=== PATIENT | female | born 1990 | race Caucasian/White ===

== ENCOUNTER 2019-04-17 10:07 | Outpatient (CLI) | payer OTHER ==
[2019-04-17 13:04] LABS: BASOPHILS % (AUTO) 0.6 %; EOSINOPHILS % (AUTO) 0.7 %; HGB - HEMOGLOBIN 11.9 g/dL (12.0-16.0); LYMPHOCYTES # (AUTO) 1.7 10^3/uL (1.5-3.5); LYMPHOCYTES % (AUTO) 30.8 %; MEAN CORPUSCULAR HEMOGLOBIN 29.2 pg (27.0-31.0); MEAN CORPUSCULAR HGB CONC 31.9 g/dL (32.0-36.0); MEAN CORPUSCULAR VOLUME 91.6 fL (81.0-99.0); MEAN PLATELET VOLUME 9.8 fL (7.9-10.8); MONOCYTES # (AUTO) 0.4 10^3/uL (0.0-1.0); MONOCYTES % (AUTO) 7.4 %; NEUTROPHILS # (AUTO) 3.2 10^3/uL (1.5-6.6); NEUTROPHILS % (AUTO) 60.1 %; PLT - PLATELET COUNT 213 10^3/uL (130-450); RED BLOOD COUNT 4.07 10^6/uL (4.20-5.40); RED CELL DISTRIBUTION WIDTH 13.2 % (12.0-15.0); WHITE BLOOD COUNT 5.4 x10^3/uL (4.8-10.8)
[2019-04-17 16:02] LABS: ALBUMIN 4.2 g/dL (3.2-5.5); ALBUMIN/GLOBULIN RATIO 1.5 (1.0-2.2); ALKALINE PHOSPHATASE 38 IU/L (42-121); ALT ALANINE AMINOTRANSFERASE 15 IU/L (10-60); AST ASPARTATE AMINOTRANSFERASE 18 IU/L (10-42); BUN - BLOOD UREA NITROGEN 12 mg/dL (6-20); CARBON DIOXIDE - CO2 26 mmol/L (21-32); CHLORIDE 102 mmol/L (101-111); CHOL/HDL RATIO 3.2 (<4.4); CHOLESTEROL 159 mg/dL; CREATININE 0.7 mg/dL (0.4-1.0); GFR - MDRD 100 (>89); GLUCOSE 87 mg/dL (70-100); HDL CHOLESTEROL 49 mg/dL; LDL CHOLESTEROL,CALCULATED 97 mg/dL; SODIUM 134 mmol/L (135-145); VLDL CHOLESTEROL 13 mg/dL
[2019-04-17 17:47] LABS: HB2 TOTAL 12.3 g/dL; HEMOGLOBIN A1C 0.43 g/dL; HEMOGLOBIN A1C % 5.4 % (4.6-6.2)
== END 2019-04-17 23:59 | disposition home or self-care (01) ==
LOC: LAB.N 10:07
PROVIDERS: ATTEND Family Medicine
DX: Z00.00 Encounter for general adult medical examination without abnormal findings (principal)
CPT/HCPCS: 36415; 80053; 80061; 83036; 83721; 84443; 85025

== ENCOUNTER 2020-09-16 08:00 | Outpatient (CLI) | payer OTHER ==
[2020-09-16 16:14] LABS: MUDS CUTOFF CONCENTRATIONS CUTOFF CONC BELOW:
[2020-09-16 16:33] LABS: BILIRUBIN,URINE NEGATIVE (NEGATIVE); GLUCOSE, URINE (UA) NEGATIVE (NEGATIVE); KETONES,URINE (UA) NEGATIVE (NEGATIVE); LEUKOCYTE ESTERASE, URINE NEGATIVE (NEGATIVE); NITRITE,URINE NEGATIVE (NEGATIVE); OCCULT BLOOD,URINE NEGATIVE (NEGATIVE); PH,URINE 6.5 PH (5.0-7.5); PROTEIN,URINE NEGATIVE (NEGATIVE); UROBILINOGEN,URINE 0.2 (NORMAL) E.U./dL (NORMAL)
[2020-09-16 16:36] LABS: CLARITY,URINE CLEAR (CLEAR)
[2020-09-16 16:47] LABS: BACTERIA,URINE Rare /HPF (None Seen); RBC,URINE None Seen /HPF (0-5); SQUAMOUS EPITHELIAL CELL,UR RARE Squamous (<= Few); WBC,URINE 0-3 /HPF (0-5)
[2020-09-16 16:48] LABS: AMPHETAMINE SCREEN,URINE NEGATIVE (NEGATIVE); BARBITURATE SCREEN,UR NEGATIVE (NEGATIVE); BENZODIAZEPINES SCREEN, URINE NEGATIVE (NEGATIVE); COCAINE SCREEN URINE NEGATIVE (NEGATIVE); METHADONE SCREEN, URINE NEGATIVE (NEGATIVE); METHAMPHETAMINES SCREEN, URINE NEGATIVE (NEGATIVE); OPIATE SCREEN, URINE NEGATIVE (NEGATIVE); OXYCODONE SCREEN, URINE NEGATIVE (NEGATIVE); PROPOXYPHENE SCREEN, URINE NEGATIVE (NEGATIVE); THC CANNABINOID SCREEN, URINE NEGATIVE (NEGATIVE); TRICYCLIC ANTIDEPRESSANT,URINE NEGATIVE (NEGATIVE)
== END 2020-09-16 23:59 | disposition home or self-care (01) ==
LOC: LAB.R 08:00
PROVIDERS: ATTEND Nurse Practitioner Obstetrics & Gynecology
DX: Z32.01 Encounter for pregnancy test, result positive (principal)
CPT/HCPCS: 80306; 81001; 87086

== ENCOUNTER 2020-09-18 18:36 | Outpatient (CLI) | payer OTHER ==
--- NOTE | 2020-09-18 20:17 | Ultrasound Report ---
PROCEDURE: OB First Trimester w/TV INDICATIONS: POSITIVE TEST OUTSIDE/PRIOR DATING DATA: Last menstrual period (LMP): 07/10/2020. LMP-based estimated date of delivery (KALE): 04/16/2021. First dating scan (date and location): 09/18/2020. Estimated date of delivery (KALE) from first dating scan: 05/13/2021. TECHNIQUE: Real-time scanning was performed of the fetus and maternal pelvic organs, with image documentation. Endovaginal scanning was also performed to better visualize the fetus and maternal ovaries. COMPARISON: None. FINDINGS: Embryo: Single living intrauterine fetus with a crown-rump length measuring 0.45 cm, 6 weeks 1 day. heart rate measured 114 bpm. Possible subchorionic hemorrhage measuring 0.6 x 0.2 x 0.6 cm, richardson hnically nonspecific and differential includes involuting additional gestational sac. Measurement variability in dating: +/- 4 weeks by LMP, +/- 7 days by mean sac diameter (use before 6 weeks gestation if crown-rump length not able to be measured), +/- 5 days by crown-rump length (6-12 weeks gestation). Maternal organs: Ovaries unremarkable except for a presumed right-sided corpus luteum measuring 2.5 cm. IMPRESSION: Single living intrauterine fetus with a gestational age measuring 6 weeks 1 day, ultrasound KALE of Possible subcentimeter perigestational hemorrhage Reviewed by: Mayo Guan MD on 09/18/2020 8:16 PM PDT Approved by: Mayo Guan MD on 09/18/2020 8:16 PM PDT Station ID: [id number]
== END 2020-09-18 18:37 | disposition home or self-care (01) ==
LOC: DI 18:36
PROVIDERS: ATTEND Nurse Practitioner Obstetrics & Gynecology
DX: Z32.01 Encounter for pregnancy test, result positive (principal)

== ENCOUNTER 2020-09-29 15:45 | Outpatient (CLI) | payer OTHER ==
[2020-09-29 16:04] LABS: BASOPHILS % (AUTO) 0.6 %; EOSINOPHILS # (AUTO) 0.1 10^3/uL (0.0-0.7); HCT - HEMATOCRIT 35.2 % (37.0-47.0); LYMPHOCYTES # (AUTO) 2.1 10^3/uL (1.5-3.5); LYMPHOCYTES % (AUTO) 31.1 %; MEAN CORPUSCULAR HEMOGLOBIN 30.5 pg (27.0-31.0); MEAN CORPUSCULAR HGB CONC 34.1 g/dL (32.0-36.0); MEAN CORPUSCULAR VOLUME 89.3 fL (81.0-99.0); MEAN PLATELET VOLUME 9.4 fL (7.9-10.8); MONOCYTES # (AUTO) 0.6 10^3/uL (0.0-1.0); MONOCYTES % (AUTO) 8.1 %; NEUTROPHILS # (AUTO) 4.1 10^3/uL (1.5-6.6); NEUTROPHILS % (AUTO) 59.1 %; PLT - PLATELET COUNT 256 10^3/uL (130-450); RED BLOOD COUNT 3.94 10^6/uL (4.20-5.40); RED CELL DISTRIBUTION WIDTH 12.4 % (12.0-15.0); WHITE BLOOD COUNT 6.9 x10^3/uL (4.8-10.8)
[2020-09-30 11:12] LABS: HEPATITIS B SURFACE ANTIGEN NON-REACTIVE (NON-REACTIVE)
[2020-09-30 11:27] LABS: HEPATITIS C ANTIBODY NON-REACTIVE (NON-REACTIVE)
[2020-09-30 15:21] LABS: HIV AG/AB 4TH GEN NON-REACTIVE (NON-REACTIVE)
== END 2020-09-29 15:46 | disposition home or self-care (01) ==
LOC: LAB 15:45
PROVIDERS: ATTEND Nurse Practitioner Obstetrics & Gynecology
DX: Z32.01 Encounter for pregnancy test, result positive (principal)
CPT/HCPCS: 36415; 85025; 86592; 86762; 86787; 86803; 86850; 86900; 86901; 87340; 87389

== ENCOUNTER 2020-10-23 11:25 | Outpatient (CLI) | payer OTHER | END 2020-10-23 11:26 | disposition home or self-care (01) | LOC: LAB 11:25 | PROVIDERS: ATTEND Radiology Diagnostic Radiology | DX: Z34.81 Encounter for supervision of other normal pregnancy, first trimester (principal); Z36.0 Encounter for antenatal screening for chromosomal anomalies | CPT/HCPCS: 86787 ==

== ENCOUNTER 2020-11-03 08:41 | Outpatient (CLI) | payer OTHER | END 2020-11-03 08:42 | disposition home or self-care (01) | LOC: LAB 08:41 | PROVIDERS: ATTEND Nurse Practitioner Obstetrics & Gynecology | DX: O20.0 Threatened abortion (principal) | CPT/HCPCS: 36415; 84702 ==

== ENCOUNTER 2020-11-03 19:40 | Outpatient (CLI) | payer OTHER ==
--- NOTE | 2020-11-03 20:58 | Ultrasound Report ---
PROCEDURE: OB First Trimester w/TV INDICATIONS: THREATENENED OUTSIDE/PRIOR DATING DATA: Last menstrual period (LMP): 07/10/2020. LMP-based estimated date of delivery (KALE): 04/16/2021. First dating scan (date and location): 09/18/2020. Estimated date of delivery (KALE) from first dating scan: 05/13/2021. The below data below was generated using the ultrasound KALE of 05/13/2021 TECHNIQUE: Real-time scanning was performed of the fetus and maternal pelvic organs, with image documentation. Endovaginal scanning was also performed to better visualize the fetus and maternal ovaries. COMPARISON: FINDINGS: There is a deformed gestational sac. There is a tiny possible crown-rump length without a heartbeat. Findings are consistent with a nonviable . Maternal organs: The right ovary contains a subcentimeter complex cyst. Right ovary measures 3.3 x 1. 7 x 2.7 cm. Left ovary measures 3.5 x 1.0 x 3.1 cm. IMPRESSION: Nonviable intrauterine . Reviewed by: Wale Valadez MD on 11/03/2020 8:56 PM PDT Approved by: Wale Valadez MD on 11/03/2020 8:56 PM PDT Station ID: [id number]
== END 2020-11-03 19:41 | disposition home or self-care (01) ==
LOC: DI 19:40
PROVIDERS: ATTEND Nurse Practitioner Obstetrics & Gynecology
DX: O36.8310 Maternal care for abnormalities of the fetal heart rate or rhythm, first trimester, not applicable or unspecified (principal); O20.0 Threatened abortion
CPT/HCPCS: 36415; 84702

== ENCOUNTER 2020-11-04 07:16 | Outpatient (CLI) | payer OTHER | END 2020-11-04 07:17 | disposition home or self-care (01) | LOC: LAB 07:16 | PROVIDERS: ATTEND Nurse Practitioner Obstetrics & Gynecology | DX: O20.0 Threatened abortion (principal) | CPT/HCPCS: 36415; 84702 ==

== ENCOUNTER 2020-11-17 07:38 | Outpatient (CLI) | payer OTHER | END 2020-11-17 07:39 | disposition home or self-care (01) | LOC: LAB 07:38 | PROVIDERS: ATTEND Nurse Practitioner Obstetrics & Gynecology | DX: O02.1 Missed abortion (principal) | CPT/HCPCS: 36415; 84702 ==

== ENCOUNTER 2020-11-27 09:48 | Outpatient (CLI) | payer OTHER | END 2020-11-27 23:59 | disposition home or self-care (01) | LOC: LAB.WCP 09:48 | PROVIDERS: ATTEND Nurse Practitioner Obstetrics & Gynecology | DX: O02.1 Missed abortion (principal) | CPT/HCPCS: 36415; 84702 ==

== ENCOUNTER 2020-12-18 08:00 | Outpatient (CLI) | payer OTHER | END 2020-12-18 23:59 | disposition home or self-care (01) | LOC: LAB.WCP 08:00 | PROVIDERS: ATTEND Advanced Practice Midwife | DX: O02.1 Missed abortion (principal) | CPT/HCPCS: 36415; 84702 ==

== ENCOUNTER 2020-12-29 08:00 | Outpatient (CLI) | payer OTHER | END 2020-12-29 23:59 | disposition home or self-care (01) | LOC: LAB.WCP 08:00 | PROVIDERS: ATTEND Nurse Practitioner Obstetrics & Gynecology | DX: O02.1 Missed abortion (principal) | CPT/HCPCS: 36415; 84702 ==

== ENCOUNTER 2021-02-12 08:00 | Outpatient (CLI) | payer OTHER | END 2021-02-12 23:59 | disposition home or self-care (01) | LOC: LAB.WCP 08:00 | PROVIDERS: ATTEND Nurse Practitioner Obstetrics & Gynecology | DX: O02.1 Missed abortion (principal) | CPT/HCPCS: 36415; 84702 ==

== ENCOUNTER 2021-02-12 08:00 | Outpatient (CLI) | payer OTHER | END 2021-02-12 23:59 | disposition home or self-care (01) | LOC: LAB.WCP 08:00 | PROVIDERS: ATTEND Nurse Practitioner Obstetrics & Gynecology | DX: Z53.9 Procedure and treatment not carried out, unspecified reason (principal) ==

== ENCOUNTER 2021-02-19 08:00 | Outpatient (CLI) | payer OTHER | END 2021-02-19 08:01 | disposition home or self-care (01) | LOC: LAB.WCP 08:00 | PROVIDERS: ATTEND Nurse Practitioner Obstetrics & Gynecology | DX: O02.1 Missed abortion (principal) | CPT/HCPCS: 36415; 84702; 85025; 86592; 86762; 86850; 86900; 86901; 87340; 87389 ==

== ENCOUNTER 2021-02-26 08:00 | Outpatient (CLI) | payer OTHER | END 2021-02-26 23:59 | disposition home or self-care (01) | LOC: LAB.WCP 08:00 | PROVIDERS: ATTEND Nurse Practitioner Obstetrics & Gynecology | DX: O02.1 Missed abortion (principal) | CPT/HCPCS: 36415; 84702 ==

== ENCOUNTER 2021-03-24 09:50 | Outpatient (CLI) | payer OTHER | END 2021-03-24 23:59 | disposition home or self-care (01) | LOC: LAB.WCP 09:50 | PROVIDERS: ATTEND Nurse Practitioner Obstetrics & Gynecology | DX: O02.1 Missed abortion (principal) | CPT/HCPCS: 36415; 84702 ==

== ENCOUNTER 2021-04-06 11:12 | Outpatient (CLI) | payer OTHER | END 2021-04-06 23:59 | disposition home or self-care (01) | LOC: LAB.WCP 11:12 | PROVIDERS: ATTEND Nurse Practitioner Obstetrics & Gynecology | DX: O02.1 Missed abortion (principal) | CPT/HCPCS: 36415; 84702 ==

== ENCOUNTER 2021-04-29 16:14 | Outpatient (CLI) | payer OTHER ==
--- NOTE | 2021-04-30 08:34 | Ultrasound Report ---
PROCEDURE: Pelvic w/Transvaginal INDICATIONS: PELVIC PAIN TECHNIQUE: Real-time scanning was performed of the pelvic organs, with image documentation. Additional endovagi nal scanning was necessary due to incomplete visualization of the adnexal and endometrial structures by transabdominal scanning. COMPARISON: None. FINDINGS: UTERUS: Anteverted and measures 9.6 x 5.3 x 6.6 cm. Heterogeneous echotexture. The endometrial thickness measures approximately 7 mm. Fluid with echogenic debris is seen within the endometrial canal, compatible with blood products. An echogenic focus is seen within the endometrium , measuring up to 2.1 cm. RIGHT OVARY: 2.7 x 1.3 x 3.2 cm. Color-flow projects over the ovarian tissue. LEFT OVARY: 5.2 x 2.9 x 4 cm. Color-flow projects over the ovarian tissue. Complex hypoechoic lesion in the left ovary, measuring up to 3 cm, which may reflect a hemorrhagic cyst. OTHER: None. IMPRESSION: 1.Echogenic focus within the endometrial canal, which may reflect blood products. Differential consid erations include a polyp or other mass. 2.2. Complex hypoechoic lesion in the left ovary, which may reflect a hemorrhagic cyst. Reviewed by: Jgadish Mari MD on 04/30/2021 8:32 AM PST Approved by: Jagdish Mari MD on 04/30/2021 8:32 AM PST Station ID: [id number]
== END 2021-04-29 16:15 | disposition home or self-care (01) ==
LOC: DI 16:14
PROVIDERS: ATTEND Nurse Practitioner Obstetrics & Gynecology
DX: R10.2 Pelvic and perineal pain (principal); R10.31 Right lower quadrant pain; R93.89 Abnormal findings on diagnostic imaging of other specified body structures

== ENCOUNTER 2022-04-26 16:33 | Outpatient (CLI) | payer OTHER ==
--- NOTE | 2022-04-27 17:44 | Ultrasound Report ---
PROCEDURE: OB First Trimester INDICATIONS: POSITIVE TEST OUTSIDE/PRIOR DATING DATA: Last menstrual period (LMP): 03/01/2022. LMP-based estimated date of delivery (KALE): 12/06/2022. First dating scan (date and location): 04/26/2022. Estimated date of delivery (KALE) from first dating scan: 12/08/2022. The below data below was generated using the ultrasound KALE of 12/08/2022 TECHNIQUE: Real-time scanning was performed of the fetus and maternal pelvic organs, with image documentation. COMPARISON: None FINDINGS: Embryo: Single live intrauterine is identified with crown-rump length measuring 1.4 cm cor responding to 7 weeks 5 days. Small subchorionic hemorrhage is present measuring 13 x 5 x 16 mm. Heart rate: 1 60 bpm. Measurement variability in dating: +/- 4 weeks by LMP, +/- 7 days by mean sac diameter (use before 6 weeks gestation if crown-rump length not able to be measured), +/- 5 days by crown-rump length (6-12 weeks gestation). Maternal organs: Ovaries demonstrate a right corpus luteal cyst.. IMPRESSION: Single live intrauterine with ultrasound gestational age today of 7 weeks 5 days. Small subchorionic hemorrhage. Reviewed by: Nadia Sky MD on 04/27/2022 5:42 PM PST Approved by: Nadia Sky MD on 04/27/2022 5:42 PM PST Station ID: [id number]
== END 2022-04-26 16:34 | disposition home or self-care (01) ==
LOC: DI 16:33
PROVIDERS: ATTEND Nurse Practitioner
DX: O20.8 Other hemorrhage in early pregnancy (principal); Z3A.01 Less than 8 weeks gestation of pregnancy

== ENCOUNTER 2022-05-26 09:12 | Emergency (ER) | payer OTHER ==
[2022-05-26 10:00] LABS: BILIRUBIN,URINE NEGATIVE (NEGATIVE); GLUCOSE, URINE (UA) NEGATIVE (NEGATIVE); HCG UR QUAL POSITIVE; KETONES,URINE (UA) NEGATIVE (NEGATIVE); LEUKOCYTE ESTERASE, URINE NEGATIVE (NEGATIVE); NITRITE,URINE NEGATIVE (NEGATIVE); OCCULT BLOOD,URINE MODERATE (NEGATIVE); PROTEIN,URINE NEGATIVE (NEGATIVE); UROBILINOGEN,URINE 0.2 (NORMAL) E.U./dL (NORMAL)
[2022-05-26 10:13] LABS: BACTERIA,URINE Moderate /HPF (None Seen); CLARITY,URINE HAZY (CLEAR); SQUAMOUS EPITHELIAL CELL,UR MOD Squamous (<= Few)
[2022-05-26 10:14] LABS: MUCUS,URINE Few Strands
[2022-05-26 10:23] LABS: BASOPHILS % (AUTO) 0.3 %; EOSINOPHILS % (AUTO) 0.6 %; HCT - HEMATOCRIT 36.2 % (37.0-47.0); HGB - HEMOGLOBIN 12.3 g/dL (12.0-16.0); LYMPHOCYTES # (AUTO) 1.2 10^3/uL (1.5-3.5); LYMPHOCYTES % (AUTO) 19.5 %; MEAN CORPUSCULAR VOLUME 88.3 fL (81.0-99.0); MEAN PLATELET VOLUME 9.7 fL (7.9-10.8); MONOCYTES # (AUTO) 0.4 10^3/uL (0.0-1.0); MONOCYTES % (AUTO) 6.3 %; NEUTROPHILS # (AUTO) 4.7 10^3/uL (1.5-6.6); NEUTROPHILS % (AUTO) 73.1 %; PLT - PLATELET COUNT 277 10^3/uL (130-450); WHITE BLOOD COUNT 6.4 x10^3/uL (4.8-10.8)
[2022-05-26 10:46] LABS: ALBUMIN 3.9 g/dL (3.2-5.5); ALBUMIN/GLOBULIN RATIO 1.1 (1.0-2.2); BILIRUBIN,TOTAL 0.8 mg/dL (0.2-1.0); CALCIUM 9.4 mg/dL (8.5-10.3); CREATININE 0.5 mg/dL (0.4-1.0); POTASSIUM 3.5 mmol/L (3.5-5.0); TOTAL PROTEIN 7.4 g/dL (6.7-8.2)
--- NOTE | 2022-05-26 10:46 | Ultrasound Report ---
PROCEDURE: OB First Trimester INDICATIONS: 12 weeks preg, +VB OUTSIDE/PRIOR DATING DATA: Last menstrual period (LMP): 03/01/2022. LMP-based estimated date of delivery (KALE): 12/06/2022. First dating scan (date and location): 04/26/2022. Estimated date of delivery (KAEL) from first dating scan: 12/08/2022. TECHNIQUE: Real-time scanning was performed of the fetus and maternal pelvic organs, with image documentation. COMPARISON: 04/26/2022 FINDINGS: Single living intrauterine . Embryo: [place]-rump rump length of 5.33 cm corresponding to gestational age of 12 weeks 0 days. Heart rate: 153 bpm. Small perigestational hemorrhage left aspect of the uterus measuring up to 2.4 cm, less than 50% circ umference of the gestational sac. Measurement variability in dating: +/- 4 weeks by LMP, +/- 7 days by mean sac diameter (use before 6 weeks gestation if crown-rump length not able to be measured), +/- 5 days by crown-rump length (6-12 weeks gestation). Maternal organs: Ovaries are unremarkable. A right corpus luteum is present. Cervix is long and avery sed. IMPRESSION: 1. Single living intrauterine . 2. Small perigestational hemorrhage present. Reviewed by: Santi Urena MD on 05/26/2022 10:44 AM PST Approved by: Santi Urena MD on 05/26/2022 10:44 AM PST Station ID: [id number]
--- NOTE | 2022-05-26 11:13 | ED Physician Documentation ---
History of Present Illness - Stated complaint Stated Complaint: 12 WEEKS/BLEEDING - Chief complaint Chief Complaint: Abd Pain - History obtained from History obtained from: Patient - History of Present Illness Timing: Today Pain level max: 0 Pain level now: 0 - Additonal information Additional information: Patient is a 32-year-old female, 3 para 1 who presents to the emergency department stating she is approximately 12 weeks . She states this morning started having vaginal bleeding. No discharge. Mild cramping. Nothing makes it better or worse. She did have a miscarriage last year. She does have 1 healthy child. She is followed by the [facility] for this . She states no complications with . Review of Systems Ten Systems: 10 systems reviewed and negative Constitutional: denies: Fever, Chills Cardiac: denies: Chest pain / pressure, Palpitations Respiratory: denies: Dyspnea, Cough GI: denies: Nausea, Vomiting, Diarrhea Skin: denies: Rash Musculoskeletal: denies: Neck pain, Back pain Neurologic: denies: Headache PD PAST MEDICAL HISTORY - Past Medical History Past Medical History: No - Past Surgical History Past Surgical History: No - Present Medications Home Medications: Ambulatory Orders Medication Instructions Recorded Confirmed cephALEXin [Keflex] 500 mg PO Q6H #20 cap 05/26/22 - Allergies Allergies/Adverse Reactions: Allergies Allergy/AdvReac Type Severity Reaction Status Date / Time No Known Drug Allergies Allergy Verified 05/26/22 09:30 - Living Situation Living Situation: reports: With family Living Arrangement: reports: At home - Social History Does the pt smoke?: No Does the pt drink ETOH?: No Does the pt have substance abuse?: No - Family History Family history: reports: Non contributory PD ED PE NORMAL - Vitals Vital signs reviewed: Yes - General General: Alert and oriented X 3, No acute distress - HEENT HEENT: Moist mucous membranes - Neck Neck: Supple, no meningeal sign - Cardiac Cardiac: RRR, Strong equal pulses - Respiratory Respiratory: No respiratory distress, Clear bilaterally - Abdomen Abdomen: Soft, Non tender, Non distended - Derm Derm: Warm and dry, No rash - Extremities Extremities: No edema, No calf tenderness / cord - Neuro Neuro: Alert and oriented X 3 - Psych Psych: Normal mood, Normal affect Results - Vitals Vitals: Vital Signs - 24 hr 05/26/22 05/26/22 09:31 11:15 Temperature 37.6 C Heart Rate 110 H 107 H Respiratory 18 18 Rate Blood Pressure 137/85 H 126/73 O2 Saturation 96 100 Oxygen O2 Source Room air - Labs Labs: Laboratory Tests 05/26/22 05/26/22 05/26/22 09:42 09:42 10:14 WBC RBC Hgb Hct MCV MCH MCHC RDW Plt Count MPV Neut # (Auto) Lymph # (Auto) [place] # (Auto) Eos # (Auto) Baso # (Auto) Absolute Nucleated RBC Nucleated RBC % Sodium Potassium Chloride Carbon Dioxide Anion Gap BUN Creatinine Estimated GFR (MDRD) Glucose Calcium Total Bilirubin AST ALT Alkaline Phosphatase Total Protein Albumin Globulin Albumin/Globulin Ratio Lipase HCG, Quant Urine Color YELLOW Urine Clarity HAZY Urine pH 6.0 Ur Specific [place] 1.020 Urine Protein NEGATIVE Urine Glucose (UA) NEGATIVE Urine Ketones NEGATIVE Urine Occult Blood MODERATE H Urine Nitrite NEGATIVE Urine Bilirubin NEGATIVE Urine Urobilinogen 0.2 (NORMAL) Ur Leukocyte Esterase NEGATIVE Urine RBC 6-10 H Urine WBC 4-5 Ur Squamous Epith Cells MOD Squamous H Urine Bacteria Moderate H Urine Mucus Few Strands Ur Microscopic Review INDICATED Urine Culture Comments NOT INDICATED Urine HCG, Qual POSITIVE Blood Type A POSITIVE 05/26/22 05/26/22 05/26/22 10:14 10:14 10:16 WBC 6.4 RBC 4.10 L Hgb 12.3 Hct 36.2 L MCV 88.3 MCH 30.0 MCHC 34.0 RDW 12.0 Plt Count 277 MPV 9.7 Neut # (Auto) 4.7 Lymph # (Auto) 1.2 L [place] # (Auto) 0.4 Eos # (Auto) 0.0 Baso # (Auto) 0.0 Absolute Nucleated RBC 0.00 Nucleated RBC % 0.0 Sodium 134 L Potassium 3.5 Chloride 101 Carbon Dioxide 25 Anion Gap 8.0 BUN 13 Creatinine 0.5 Estimated GFR (MDRD) 143 Glucose 103 H Calcium 9.4 Total Bilirubin 0.8 AST 21 ALT 21 Alkaline Phosphatase 56 Total Protein 7.4 Albumin 3.9 Globulin 3.5 Albumin/Globulin Ratio 1.1 Lipase 31 HCG, Quant 627062.00 Urine Color Urine Clarity Urine pH Ur Specific [place] Urine Protein Urine Glucose (UA) Urine Ketones Urine Occult Blood Urine Nitrite Urine Bilirubin Urine Urobilinogen Ur Leukocyte Esterase Urine RBC Urine WBC Ur Squamous Epith Cells Urine Bacteria Urine Mucus Ur Microscopic Review Urine Culture Comments Urine HCG, Qual Blood Type - Rads (name of study) OB US Radiology: Final report received, See rad report PD Medical Decision Making - ED course Complexity details: reviewed results, re-evaluated patient, considered differential, d/w patient ED course: 32-year-old female presents with vaginal bleeding. Approximately 12 weeks . Ultrasound shows an IUP with a normal heart rate. Small edwina gestational bleed. No acute laboratory abnormalities. Does have asymptomatic bacteriuria, but as she is , we will treat this. She will follow-up with her OB for further care. Patient counseled regarding signs and symptoms for which I believe and urgent re-evaluation would be necessary. Patient with good understanding of and agreement to plan and is comfortable going home at this time This document was made in part using voice recognition software. While efforts are made to proofread this document, sound alike and grammatical errors may occur. Departure - Departure Disposition: 01 Home, Self Care Clinical Impression: Vaginal bleeding affecting early UTI (urinary tract infection) Qualifiers: Urinary tract infection type: acute cystitis Hematuria presence: without hematuria Qualified Code(s): N30.00 - Acute cystitis without hematuria Condition: Good Instructions: ED Miscarriage Poss, ED UTI Cystitis Female Follow-Up: Maite Marie ARNP [Primary Care Provider] - Within 1 week [facility] [Provider Group] - Within 1 week Prescriptions: cephALEXin [Keflex] 500 mg PO Q6H #20 cap Comments: Your prescription was sent to [facility] in [place]. Please follow-up with your doctor for further care. Your bleeding has stopped today. Your ultrasound shows a single living intrauterine . Please return if you worsen. FINDINGS: Single living intrauterine . Embryo: [place]-rump rump length of 5.33 cm corresponding to gestational age of 12 weeks 0 days. Heart rate: 153 bpm. Small perigestational hemorrhage left aspect of the uterus measuring up to 2.4 cm, less than 50% circumference of the gestational sac. Measurement variability in dating: +/- 4 weeks by LMP, +/- 7 days by mean sac diameter (use before 6 weeks gestation if crown-rump length not able to be measured), +/- 5 days by crown-rump length (6- 12 weeks gestation). Maternal organs: Ovaries are unremarkable. A right corpus luteum is present. Cervix is long and closed. IMPRESSION: 1. Single living intrauterine . 2. Small perigestational hemorrhage present. Discharge Date/Time: 05/26/22 11:18
[2022-05-26 11:16] VITALS: BP 126/73
== END 2022-05-26 11:18 | disposition home or self-care (01) ==
LOC: ED 09:12
DX: O20.9 Hemorrhage in early pregnancy, unspecified (principal); O99.891 Other specified diseases and conditions complicating pregnancy; N30.00 Acute cystitis without hematuria; Z3A.12 12 weeks gestation of pregnancy
CPT/HCPCS: 36415; 80053; 81001; 81003; 81025; 83690; 84702; 85025; 86900; 86901; 87086; 99282; 99284

== ENCOUNTER 2022-07-07 10:56 | Outpatient (CLI) | payer OTHER ==
[2022-07-09 20:07] LABS: AFP MOM 1.44 (.); DIA VALUE 201.51 pg/mL (.); DSR (BY AGE) 1 IN 477 (.); DSR (SECOND TRIMESTER) 1 IN 1024 (.); GEST. AGE ON COLLECTION DATE 18.3 WEEKS (.); HCG MOM 1.78 (.); HCG VALUE 44005 mIU/mL (.); INSULIN DEP DIABETES No (.); MATERNAL AGE AT EDD 32.6 yr (.); MULTIPLE GESTATION No (.); OPEN SPINA BIFIDA RISK 1 IN 3220 (.); RACE Caucasian (.); RESULTS Report (.); TEST RESULTS *Screen Negative* (.); TRISOMY 18 RISK Not increased (.); UE3 MOM 0.73 (.); UE3 VALUE 1.08 ng/mL (.); WEIGHT 201 lbs (.)
== END 2022-07-07 10:57 | disposition home or self-care (01) ==
LOC: LAB 10:56
PROVIDERS: ATTEND Obstetrics & Gynecology
DX: Z34.92 Encounter for supervision of normal pregnancy, unspecified, second trimester (principal)
CPT/HCPCS: 36415; 81511

== ENCOUNTER 2022-07-25 18:39 | Outpatient (CLI) | payer OTHER ==
--- NOTE | 2022-07-26 14:21 | Ultrasound Report ---
PROCEDURE: OB Detailed Eval INDICATIONS: SUPERVISION OF OUTSIDE/PRIOR DATING DATA: Last menstrual period (LMP): 03/01/2022. LMP-based estimated date of delivery (KALE): 12/06/2022. First dating scan (date and location): 04/26/2022. Estimated date of delivery (KALE) from first dating scan: 12/08/2022. TECHNIQUE: Real-time scanning was performed of the fetus, with image documentation and biometric measurements. Endovaginal scanning: Not performed COMPARISON: 05/26/2022 FINDINGS: General: A single living intrauterine gestation is present. Presentation: Variable Placenta: Placental position is posterior, without previa. Amniotic fluid index: 14.3 cm, largest vertical pocket measuring 4.75 cm. heart rate: 137 beats per minute. Maternal cervical canal: 6.2 cm long; normal length is 2.5 cm or more. biometrics: Biparietal diameter: 4.6 cm, 20 weeks and 0 days Head circumference: 17.45 cm, 20 weeks and 0 days Abdominal circumference: 16.19 cm, 21 weeks and 2 days Femur length: 3.42 cm, 20 weeks and 5 days Estimated gestational age from initial scan: 20 weeks and 4 days Composite gestational age from present scan: 20 weeks and 3 days Estimated weight and percentile: 384.5 g, correlating with the 63rd percentile for gestational age Measurement variability in biometric dating: +/- 10 days from 12-20 weeks gestation, +/- 2 weeks from 20-30 weeks gestation, +/- 3 weeks at 30 weeks gestation or later. Anatomic survey: Neuro: Ventricles are normal at less than 10 mm. Cisterna magna is normal at 3-11 mm. Cerebellum i s normal in size and morphology. Nuchal skin fold: Normal at less than 6 mm between 14 and 20 weeks gestational age. Face: Nose and lips, facial profile are normal. Spine: No evidence for spina bifida. Heart: 4-chambered heart is present, with normal ventricular outflow tracts. Diaphragm: Diaphragm is intact. Stomach: Left-sided stomach is present. Kidneys: No hydronephrosis. Normal is less than 5 mm in 2nd trimester, less than 7 mm in 3rd trimester. Cord: 3 vessel cord has orthotopic insertion. Bladder: Normal in size. Extremities: All 4 extremities are visualized. IMPRESSION: Single living intrauterine gestation with estimated sonographic gestational age of approximately 20 w eeks and 3 days. Expected interval growth has occurred. Estimated weight of approximately 384.5 g which correlates with the 63rd percentile. Unremarkable second trimester anatomy screening survey. Reviewed by: Shayne Martins MD on 07/26/2022 2:20 PM PST Approved by: Shayne Martins MD on 07/26/2022 2:20 PM [facility] Station ID: [id number]
== END 2022-07-25 18:40 | disposition home or self-care (01) ==
LOC: DI 18:39
PROVIDERS: ATTEND Obstetrics & Gynecology
DX: Z34.92 Encounter for supervision of normal pregnancy, unspecified, second trimester (principal)

== ENCOUNTER 2022-09-01 08:00 | Outpatient (CLI) | payer OTHER ==
[2022-09-01 18:20] LABS: BACTERIAL VAGINOSIS DNA NEGATIVE (NEGATIVE); CANDIDA KRUSEI DNA NEGATIVE (NEGATIVE); TRICHOMONAS VAGINALIS DNA NEGATIVE (NEGATIVE)
[2022-09-01 18:21] LABS: CANDIDA GLABRATA DNA NEGATIVE (NEGATIVE); CANDIDA GROUP DNA NEGATIVE (NEGATIVE)
== END 2022-09-01 23:59 | disposition home or self-care (01) ==
LOC: LAB.WC 08:00
PROVIDERS: ATTEND Obstetrics & Gynecology
DX: N76.0 Acute vaginitis (principal)
CPT/HCPCS: 81514

== ENCOUNTER 2022-09-16 10:45 | Outpatient (CLI) | payer OTHER ==
[2022-09-16 18:02] LABS: HCT - HEMATOCRIT 35.9 % (37.0-47.0); HGB - HEMOGLOBIN 11.4 g/dL (12.0-16.0); MEAN CORPUSCULAR HEMOGLOBIN 29.8 pg (27.0-31.0); MEAN CORPUSCULAR HGB CONC 31.8 g/dL (32.0-36.0); MEAN CORPUSCULAR VOLUME 93.7 fL (81.0-99.0); MEAN PLATELET VOLUME 10.1 fL (7.9-10.8); RED BLOOD COUNT 3.83 10^6/uL (4.20-5.40); RED CELL DISTRIBUTION WIDTH 13.3 % (12.0-15.0); WHITE BLOOD COUNT 10.3 x10^3/uL (4.8-10.8)
== END 2022-09-16 10:46 | disposition home or self-care (01) ==
LOC: LAB.N 10:45
PROVIDERS: ATTEND Obstetrics & Gynecology
DX: Z34.90 Encounter for supervision of normal pregnancy, unspecified, unspecified trimester (principal); Z36.89 Encounter for other specified antenatal screening
CPT/HCPCS: 36415; 82950; 85027

== ENCOUNTER 2022-10-04 12:51 | Outpatient (CLI) | payer OTHER ==
--- NOTE | 2022-10-04 17:23 | Ultrasound Report ---
PROCEDURE: OB F/U or Repeat INDICATIONS: UTERINE SIZE DATE DISCREPENCY OUTSIDE/PRIOR DATING DATA: Last menstrual period (LMP): 03/01/2022. LMP-based estimated date of delivery (KALE): 12/06/2022. First dating scan (date and location): 04/26/2022. Estimated date of delivery (KALE) from first dating scan: 12/08/2022. The below data below was generated using the ultrasound KALE of 12/08/2022 TECHNIQUE: Real-time scanning was performed of the fetus, with image documentation and biometric measurements. Endovaginal scanning: Not performed COMPARISON: 07/25/2022 FINDINGS: General: A single living intrauterine gestation is present. Presentation: Cephalic Placenta: Placental position is posterior, without previa. Amniotic fluid index: 9.1 cm, 6.1 percent for gestational age. heart rate: 127 beats per minute. Maternal cervical canal: 4.7 cm long; normal length is 2.5 cm or more. biometrics: Biparietal diameter: 7.3 cm, 29 weeks 2 days Head circumference: 26.6 cm, 29 weeks Abdominal circumference: 25.3 cm, 29 weeks 3 days Femur length: 5.6 cm, 29 weeks 3 days Estimated gestational age from initial scan: 30 weeks 5 days. Composite gestational age from present scan: 29 weeks 2 days. Estimated weight and percentile: 1387 g, 8th percentile. Measurement variability in biometric dating: +/- 10 days from 12-20 weeks gestation, +/- 2 weeks from 20-30 weeks gestation, +/- 3 weeks at 30 weeks gestation or more. Other: Not applicable. IMPRESSION: Single living intrauterine at 30 weeks 5 days, KALE of 12/08/2022. Estimated weight of 1387 g, 18th percentile. Reviewed by: Vincent Cuevas on 10/04/2022 5:22 PM PDT Approved by: Vincent Cuevas on 10/04/2022 5:22 PM PDT Station ID: [id number]
== END 2022-10-04 12:52 | disposition home or self-care (01) ==
LOC: DI 12:51
PROVIDERS: ATTEND Obstetrics & Gynecology
DX: O26.843 Uterine size-date discrepancy, third trimester (principal); Z3A.30 30 weeks gestation of pregnancy

== ENCOUNTER 2022-10-18 08:51 | Outpatient (CLI) | payer OTHER ==
[2022-10-18 09:13] VITALS: BP 119/72
--- NOTE | 2022-10-18 09:43 | PROCEDURE REPORT ---
- HPI Diagnosis/Indication for NST: Intrauterine growth restriction Vital Signs Temperature 98.2 F 10/18/22 09:02 Heart Rate 92 10/18/22 09:02 Respiratory Rate 16 10/18/22 09:02 Blood Pressure 119/72 10/18/22 09:02 - NST Procedure NST Procedure Start Date 10/18/22 Start Time 09:00 Stop Time 09:35 Vibroacoustic Stimulation Used No Patient States Movement Yes - Results and Plan Plan: Patient is a 32-year-old -0-1-1 at 33 weeks 0 days gestation here for scheduled NST. NST Performed 10/18/2022 NST Read 10/18/2022 FHT: 130 bpm baseline, moderate variability, accelerations present, no decelerations. Reactive NST [place]: Quiescent Diagnosis 33 weeks gestation Intrauterine growth restriction Continue with twice weekly NST.
== END 2022-10-18 09:45 | disposition home or self-care (01) ==
LOC: WFO 08:51 → FBP 08:52 → WFO 09:45
PROVIDERS: ATTEND Obstetrics & Gynecology
DX: O36.5930 Maternal care for other known or suspected poor fetal growth, third trimester, not applicable or unspecified (principal); Z3A.33 33 weeks gestation of pregnancy
CPT/HCPCS: 59025

== ENCOUNTER 2022-10-21 20:18 | Outpatient (CLI) | payer OTHER ==
[2022-10-21 20:40] VITALS: BP 128/77
== END 2022-10-21 21:10 | disposition home or self-care (01) ==
LOC: WFO 20:18 → FBP 20:19 → WFO 21:10
PROVIDERS: ATTEND Obstetrics & Gynecology
DX: O36.5931 Maternal care for other known or suspected poor fetal growth, third trimester, fetus 1 (principal); Z3A.33 33 weeks gestation of pregnancy
CPT/HCPCS: 59025; 99213

== ENCOUNTER 2022-10-21 21:08 | Outpatient (CLI) | payer OTHER ==
--- NOTE | 2022-10-21 21:28 | PROCEDURE REPORT ---
- HPI Diagnosis/Indication for NST: Intrauterine growth restriction - NST Procedure NST Procedure Start Time 09:00 Stop Time 09:35 EFM: 130s, moderate variability, positive 15x15 accelerations, no decelerations [place]: no contractions NST reactive/Cat 1 tracing Performed and read 10/21/22 - Results and Plan Plan: 32yo at 33.3w - NST reactive - Follow up as scheduled
--- NOTE | 2022-10-22 00:54 | Ultrasound Report ---
PROCEDURE: OB Biophysical Profile INDICATIONS: POOR GROWTH OUTSIDE/PRIOR DATING DATA: Last menstrual period (LMP): 03/01/2022. LMP-based estimated date of delivery (KALE): 12/06/2022. First dating scan (date and location): 04/26/2022. Estimated date of delivery (KALE) from first dating scan: 12/08/2022. The below data below was generated using the ultrasound KALE of 12/08/2022 TECHNIQUE: Real-time scanning was performed of the fetus, with image documentation COMPARISON: 10/04/2022, 07/25/2022, 05/26/2022, 04/26/2022 FINDINGS: General: A single live intrauterine gestation is present. Presentation: Cephalic Placenta: Placental position is posterior, without previa. Amniotic fluid index: 14.8 cm, within normal limits for gestational age. heart rate: 144 beats per minute. Maternal cervical canal: Not seen on these images. Biophysical profile: Tone: 2 points. Movement: 2 points. Respiration: 2 points. Largest pocket of fluid: 2 points. (4.2 cm) Umbilical artery Doppler: Up to 3.5 IMPRESSION: Normal biophysical profile, 8/8 points. Reviewed by: Robert Lott MD on 10/21/2022 11:53 PM [facility] Approved by: Robert Lott MD on 10/21/2022 11:53 PM [facility] Station ID: [id number]
== END 2022-10-21 21:09 | disposition home or self-care (01) ==
LOC: DI 21:08
PROVIDERS: ATTEND Obstetrics & Gynecology
DX: O36.5931 Maternal care for other known or suspected poor fetal growth, third trimester, fetus 1 (principal); Z3A.00 Weeks of gestation of pregnancy not specified

== ENCOUNTER 2022-10-25 08:51 | Outpatient (CLI) | payer OTHER ==
[2022-10-25 09:08] VITALS: BP 122/79
--- NOTE | 2022-10-25 09:25 | PROCEDURE REPORT ---
- HPI Diagnosis/Indication for NST: Intrauterine growth restriction Current EDU 12/06/22 Gestation 34 Weeks and 0 Days 3 Para 1 Vital Signs Temperature 98.1 F 10/25/22 08:58 Heart Rate 100 10/25/22 08:58 Respiratory Rate 16 10/25/22 08:58 Blood Pressure 122/79 10/25/22 08:58 Temperature 98.1 F 10/25/22 08:58 Heart Rate 100 10/25/22 08:58 Respiratory Rate 16 10/25/22 08:58 Blood Pressure 122/79 10/25/22 08:58 O2 Saturation If not protocol: Oxygen Flow, liters/minute - NST Procedure NST Procedure Start Date 10/25/22 Start Time 09:00 Stop Time 20:58 Patient States Movement Yes NST for growth restriction at 34 weeks 125, moderate variability, +accels, no decels Reactive NST - Results and Plan Findings/Impression: Reactive NST
== END 2022-10-25 09:35 | disposition home or self-care (01) ==
LOC: WFO 08:51 → FBP 08:52 → WFO 09:35
PROVIDERS: ATTEND Obstetrics & Gynecology Obstetrics
DX: O36.5930 Maternal care for other known or suspected poor fetal growth, third trimester, not applicable or unspecified (principal); Z3A.34 34 weeks gestation of pregnancy
CPT/HCPCS: 59025

== ENCOUNTER 2022-10-28 17:35 | Outpatient (CLI) | payer OTHER ==
[2022-10-28 17:51] VITALS: BP 121/77
--- NOTE | 2022-10-28 19:40 | PROCEDURE REPORT ---
- HPI Diagnosis/Indication for NST: Intrauterine growth restriction Current EDU 12/06/22 Gestation 34 Weeks and 3 Days 3 Para 1 Vital Signs Temperature 97.7 F 10/28/22 17:44 Heart Rate 99 10/28/22 17:44 Respiratory Rate 18 10/28/22 17:44 Blood Pressure 121/77 10/28/22 17:44 Temperature 97.7 F 10/28/22 17:44 Heart Rate 99 10/28/22 17:44 Respiratory Rate 18 10/28/22 17:44 Blood Pressure 121/77 10/28/22 17:44 O2 Saturation If not protocol: Oxygen Flow, liters/minute - NST Procedure NST Procedure Start Date 10/28/22 Start Time 17:40 Stop Time 18:05 Vibroacoustic Stimulation Used No Patient States Movement Yes NST reactive. performed and read by me today. no decels. no contractions. FHR 135, 15 x 15 acels. - Results and Plan Findings/Impression: reactive nst
== END 2022-10-28 18:10 | disposition home or self-care (01) ==
LOC: WFO 17:35 → FBP 17:36 → WFO 18:10
PROVIDERS: ATTEND Obstetrics & Gynecology
DX: O36.5930 Maternal care for other known or suspected poor fetal growth, third trimester, not applicable or unspecified (principal); Z3A.34 34 weeks gestation of pregnancy
CPT/HCPCS: 59025; 99213

== ENCOUNTER 2022-10-28 18:16 | Outpatient (CLI) | payer OTHER ==
--- NOTE | 2022-10-29 01:42 | Ultrasound Report ---
PROCEDURE: OB Biophysical Profile INDICATIONS: POOR GROWTH OUTSIDE/PRIOR DATING DATA: Last menstrual period (LMP): 03/01/2022. LMP-based estimated date of delivery (KALE): 12/06/2022. First dating scan (date and location): 04/26/2022. Estimated date of delivery (KLAE) from first dating scan: 12/08/2022. The below data below was generated using the ultrasound KALE of 12/08/2022 TECHNIQUE: Real-time scanning was performed of the fetus, with image documentation and biometric brittaney surements. Biophysical profile was also obtained. Endovaginal scanning: Not performed COMPARISON: OB ultrasound 10/21/2022 FINDINGS: General: A single living intrauterine gestation is present. Presentation: Cephalic Placenta: Placental position is posterior, without previa. Amniotic fluid index: 14.3 cm, normal for gestational age. heart rate: 135 beats per minute. Maternal cervical canal: Not imaged. Estimated gestational age from initial scan: 34 weeks 1 day. Biophysical profile: Tone: 2 points. Movement: 2 points. Respiration: 2 points. Largest pocket of fluid: 2 points. Umbilical artery Doppler: 2.63 at the placental insertion, 3.68 at the midportion, and 3.55 at the a bdominal insertion IMPRESSION: 1.Single live intrauterine . 2.Biophysical profile score 8 of 8. 3.Umbilical artery Doppler systolic/diastolic ratio up to 3.68 with resistive index of 0.73. Reviewed by: Santi Denton MD on 10/29/2022 1:41 AM PDT Approved by: Santi Denton MD on 10/29/2022 1:41 AM PDT Station ID: [id number]
== END 2022-10-28 18:17 | disposition home or self-care (01) ==
LOC: DI 18:16
PROVIDERS: ATTEND Obstetrics & Gynecology
DX: O36.5931 Maternal care for other known or suspected poor fetal growth, third trimester, fetus 1 (principal); Z3A.34 34 weeks gestation of pregnancy

== ENCOUNTER 2022-11-01 15:17 | Outpatient (CLI) | payer OTHER ==
[2022-11-01 15:35] VITALS: BP 118/71
--- NOTE | 2022-11-01 17:31 | PROCEDURE REPORT ---
- HPI Diagnosis/Indication for NST: Intrauterine growth restriction Current EDU 12/06/22 Gestation 35 Weeks and 0 Days 3 Para 1 Vital Signs Temperature 98.1 F 11/01/22 15:34 Heart Rate 97 11/01/22 15:34 Respiratory Rate 18 11/01/22 15:34 Blood Pressure 118/71 11/01/22 15:34 O2 Saturation 100 11/01/22 15:34 Temperature 98.1 F 11/01/22 15:34 Heart Rate 97 11/01/22 15:34 Respiratory Rate 18 11/01/22 15:34 Blood Pressure 118/71 11/01/22 15:34 O2 Saturation 100 11/01/22 15:34 If not protocol: Oxygen Flow, liters/minute - NST Procedure NST Procedure Start Date 11/01/22 Start Time 15:23 Stop Time 15:50 Vibroacoustic Stimulation Used No Patient States Movement Yes EFM: 140s, moderate variability, positive accelerations, no decelerations [place]: no contractions NST reactive/Cat 1 Performed and read 11/01/22 - Results and Plan Findings/Impression: 32yo at 35w presenting for scheduled NST for IUGR - NST reactive - Follow up as scheduled
== END 2022-11-01 15:54 | disposition home or self-care (01) ==
LOC: WFO 15:17 → FBP 15:18 → WFO 15:54
PROVIDERS: ATTEND Obstetrics & Gynecology
DX: O36.5930 Maternal care for other known or suspected poor fetal growth, third trimester, not applicable or unspecified (principal); Z3A.35 35 weeks gestation of pregnancy
CPT/HCPCS: 59025

== ENCOUNTER 2022-11-04 14:22 | Outpatient (CLI) | payer OTHER ==
[2022-11-04 14:40] VITALS: BP 125/81
--- NOTE | 2022-11-04 21:51 | PROCEDURE REPORT ---
- HPI Diagnosis/Indication for NST: Intrauterine growth restriction Current EDU 12/06/22 Gestation 35 Weeks and 3 Days 3 Para 1 Vital Signs Temperature 98.1 F 11/04/22 14:36 Heart Rate 89 11/04/22 14:36 Respiratory Rate 20 11/04/22 14:36 Blood Pressure 125/81 H 11/04/22 14:36 Temperature 98.1 F 11/04/22 14:38 Heart Rate 85 11/04/22 14:38 Respiratory Rate 11/04/22 14:38 Blood Pressure 125/81 H 11/04/22 14:38 O2 Saturation If not protocol: Oxygen Flow, liters/minute - NST Procedure NST Procedure Start Date 11/04/22 Start Time 14:32 Stop Time 14:57 Vibroacoustic Stimulation Used No Patient States Movement Yes EFM: 120s, moderate variability, positive accelerations, no decelerations [place]: no contractions NST reactive/Cat 1 Performed and read 11/04/22 - Results and Plan Findings/Impression: 32yo at 35.3 presenting for scheduled NST for IUGR - NST reactive - Follow up as scheduled
== END 2022-11-04 15:02 | disposition home or self-care (01) ==
LOC: WFO 14:22 → FBP 14:25 → WFO 15:02
PROVIDERS: ATTEND Obstetrics & Gynecology
DX: O36.5930 Maternal care for other known or suspected poor fetal growth, third trimester, not applicable or unspecified (principal); Z3A.35 35 weeks gestation of pregnancy
CPT/HCPCS: 59025; 99213

== ENCOUNTER 2022-11-04 15:04 | Outpatient (CLI) | payer OTHER ==
--- NOTE | 2022-11-05 09:49 | Ultrasound Report ---
PROCEDURE: OB Biophysical Profile INDICATIONS: POOR GROWTH OUTSIDE/PRIOR DATING DATA: Last menstrual period (LMP): 03/01/2022. LMP-based estimated date of delivery (KALE): 12/06/2022. First dating scan (date and location): 04/26/2022. Estimated date of delivery (KALE) from first dating scan: 12/08/2022. The below data below was generated using the working KALE of 12/08/2022 TECHNIQUE: Real-time scanning was performed of the fetus, with image documentation and biometric brittaney surements. Biophysical profile was also obtained. Endovaginal scanning: None COMPARISON: None. FINDINGS: General: A single living intrauterine gestation is present. Presentation: Variable Placenta: Placental position is posterior, without previa. Amniotic fluid index: 14.3 cm, normal for gestational age. heart rate: 137 beats per minute. Maternal cervical canal: 6.2 cm long; normal length is 2.5 cm or more. biometrics: Biparietal diameter: 4.6 cm, 20 week 0 day Head circumference: 17.5 cm, 20 week 0 day Abdominal circumference: 16.2 cm, 21 week 2 day Femur length: 3.4 cm, 20 week 5 day Estimated gestational age from initial scan: 20 week 4 day Composite gestational age from present scan: 20 week 3 day Estimated weight and percentile: 384 g, 63 percentile Measurement variability in biometric dating: +/- 10 days from 12-20 weeks gestation, +/- 2 weeks from 20-30 weeks gestation, +/- 3 weeks at 30 weeks gestation or later. IMPRESSION: Single live intrauterine in consistent with 20 week 3 day gestation Reviewed by: Boom Wallace MD on 11/05/2022 8:48 AM MELANIE Approved by: Boom Wallace MD on 11/05/2022 8:48 AM MELANIE Station ID: [id number]
== END 2022-11-04 15:05 | disposition home or self-care (01) ==
LOC: DI 15:04
PROVIDERS: ATTEND Obstetrics & Gynecology
DX: O36.5920 Maternal care for other known or suspected poor fetal growth, second trimester, not applicable or unspecified (principal); Z3A.20 20 weeks gestation of pregnancy

== ENCOUNTER 2022-11-07 08:00 | Outpatient (CLI) | payer OTHER | END 2022-11-07 23:59 | disposition home or self-care (01) | LOC: LAB.WC 08:00 | PROVIDERS: ATTEND Obstetrics & Gynecology | DX: Z36.85 Encounter for antenatal screening for Streptococcus B (principal) | CPT/HCPCS: 87797 ==

== ENCOUNTER 2022-11-21 11:48 | Inpatient (IN) | payer OTHER ==
[2022-11-21 12:26] LABS: BASOPHILS % (AUTO) 0.2 %; EOSINOPHILS % (AUTO) 0.5 %; HCT - HEMATOCRIT 34.8 % (37.0-47.0); HGB - HEMOGLOBIN 11.7 g/dL (12.0-16.0); LYMPHOCYTES # (AUTO) 1.8 10^3/uL (1.5-3.5); LYMPHOCYTES % (AUTO) 22.7 %; MEAN CORPUSCULAR HEMOGLOBIN 30.5 pg (27.0-31.0); MEAN CORPUSCULAR HGB CONC 33.6 g/dL (32.0-36.0); MEAN CORPUSCULAR VOLUME 90.9 fL (81.0-99.0); MEAN PLATELET VOLUME 10.4 fL (7.9-10.8); MONOCYTES # (AUTO) 0.4 10^3/uL (0.0-1.0); MONOCYTES % (AUTO) 5.2 %; NEUTROPHILS # (AUTO) 5.7 10^3/uL (1.5-6.6); PLT - PLATELET COUNT 245 10^3/uL (130-450); RED BLOOD COUNT 3.83 10^6/uL (4.20-5.40); RED CELL DISTRIBUTION WIDTH 13.8 % (12.0-15.0); WHITE BLOOD COUNT 8.1 x10^3/uL (4.8-10.8)
[2022-11-21 12:45] LABS: ALBUMIN 3.1 g/dL (3.2-5.5); ALBUMIN/GLOBULIN RATIO 0.9 (1.0-2.2); BILIRUBIN,TOTAL 0.4 mg/dL (0.2-1.0); CALCIUM 8.5 mg/dL (8.5-10.3); CREATININE 0.7 mg/dL (0.4-1.0); TOTAL PROTEIN 6.4 g/dL (6.7-8.2)
[2022-11-21 13:14] LABS: CREATININE,URINE 241.4 mg/dL; PROTEIN/CREATININE RATIO,URINE 0.4 (<=0.2)
[2022-11-21] MEDS ORDERED: ACETAMINOPHEN 500 MG TABLET PO PRN (14:32)
[2022-11-21] MEDS ORDERED: OXYTOCIN/SODIUM CHLORIDE 500 ML IV PRN (14:32)
[2022-11-21] MEDS ORDERED: LABETALOL 20 MG/4 ML SYRINGE IVP PRN ×3 (14:32)
[2022-11-21] MEDS ORDERED: OXYTOCIN 10 UNIT/ML VIAL IM PRN (14:32)
[2022-11-21] MEDS ORDERED: NIFEdipine 10 MG CAPSULE PO PRN (14:32)
[2022-11-21] MEDS ORDERED: miSOPROStoL 200 MCG TABLET PR PRN (14:32)
[2022-11-21] MEDS ORDERED: miSOPROStoL 200 MCG TABLET BC PRN (14:32)
[2022-11-21] MEDS ORDERED: TRANEXAMIC ACID IN NACL 1,000 MG/100 ML BAG IV PRN (14:32)
[2022-11-21] MEDS ORDERED: METHYLERGONOVINE 0.2 MG/ML VIAL IM PRN (14:32)
[2022-11-21] MEDS ORDERED: lidocaine 1% 20 ML MDV ID PRN (14:32)
[2022-11-21] MEDS ORDERED: LACTATED RINGERS 500 ML IV ONE (14:32)
[2022-11-21] MEDS ORDERED: fentaNYL 100 MCG/2 ML VIAL IVP PRN (14:32)
[2022-11-21] MEDS ORDERED: hydrALAZINE INJ 20 MG/ML VIAL IVP PRN ×2 (14:32)
[2022-11-21] MEDS ORDERED: SODIUM CHLORIDE FLUSH 0.9% 10 ML SYRINGE IVP PRN (14:32)
[2022-11-21] MEDS ORDERED: CARBOPROST TROMETHAMINE 250 MCG/ML AMP IM PRN (14:32)
[2022-11-21] MEDS ORDERED: SODIUM CHLORIDE FLUSH 0.9% 10 ML SYRINGE IVP SCH (15:00)
[2022-11-21] MEDS ORDERED: LACTATED RINGERS 1,000 ML IV SCH (15:00)
[2022-11-21] MEDS ORDERED: OXYTOCIN/SODIUM CHLORIDE 500 ML IV SCH (15:00)
[2022-11-21] MEDS: miSOPROStoL 100 MCG TABLET BC SCH ×2 (15:55→21:49)
--- NOTE | 2022-11-21 22:35 | HISTORY & PHYSICAL EXAMINATION ---
Admit History - Visit Reason Visit Reason: Other (IOL for preeclampsia) - : 3 Parity: 1 Care: positive: [facility] Risk/History: positive: Pre-eclampsia Smoking Status: Never smoker - Mother's Labs Mother's Blood Type: positive: A Mother's RH: positive: Positive GBS: positive: Group B Strep Positive Rubella Status: positive: Immune - Other Maternal History Other Maternal History: Med: Anxiety, depression, anemia Surg: LEEP OB: x1 [employer] Supervisor: LEEP Fam: noncontributory Social: , denies josh Meds/Allgy - Home Medications Home Medications: Ambulatory Orders Medication Instructions Recorded Confirmed cephALEXin [Keflex] 500 mg PO Q6H #20 cap 05/26/22 - Allergies Allergies/Adverse Reactions: Allergies Allergy/AdvReac Type Severity Reaction Status Date / Time No Known Drug Allergies Allergy Verified 05/26/22 09:30 Physical - Abdominal Exam Vital Signs: Temp Pulse Resp BP Pulse Ox O2 Flow Rate 98.2 F 104 H 18 145/97 H 99 11/21/22 15:00 11/21/22 15:00 11/21/22 15:00 11/21/22 15:00 11/21/22 14:32 Contraction Frequency (min/apart): none Contraction Intensity: positive: Mild Uterine Resting Tone: positive: Soft - Monitoring Heart Rate Baseline: 120 Strip Review: positive: Category I - Presentation Presentation: positive: Vertex (EFW 2800g, placenta posterior) - Vaginal Exam Membranes: positive: Membranes intact Dilation (in cm): 1 Effacement (%): 50 Station: positive: -3 Cervical Position: positive: Midposition Plan for Labor - Plan For Labor I expect patient to be DC'd or transferred within 96 hours.: Yes Plan for Labor: 32yo at 37.6w by LMP consistent with 12w US admitted for IOL for preeclampsia - BP 140/90s and PCR 0.4, diagnosed today after office visit - Misoprostol 50mcg, then plan for Pitocin - EFW 2800g, evaluated by MFM for IUGR concern in 8% - May have epidural prn - Anticipate tomorrow complicated by BMI 35, anxiety/depression, history of LEEP, mild IUGR 8%, now preeclampsia
[2022-11-22] MEDS ORDERED: NALOXONE 0.4 MG/ML VIAL IVP PRN (05:18)
[2022-11-22] MEDS ORDERED: HYDROCORTISONE 1% CREAM 28 GM TUBE TOP PRN (05:18)
[2022-11-22] MEDS ORDERED: WITCH HAZEL/GLYCERIN 1 PAD TOP PRN (05:18)
[2022-11-22] MEDS ORDERED: OXYTOCIN/SODIUM CHLORIDE 500 ML IV PRN (05:18)
[2022-11-22] MEDS ORDERED: oxyCODONE 5 MG TABLET PO PRN (05:18)
--- NOTE | 2022-11-22 05:33 | DELIVERY NOTE ---
Delivery Note - Infant Delivery Method Infant Delivery Method: positive: Spontaneous vaginal delivery - Cervical Ripening Method Cervical Ripening Method: positive: Misoprostil (2 doses given) - Presentation Presentation: positive: Vertex - Nuchal Cord Nuchal Cord: positive: None - Anesthetic Anesthetic Type: - Amniotic Fluid Description Amniotic Fluid Description: positive: Clear - Episiotomy Type Episiotomy Type: positive: None - Laceration Laceration: positive: 1st degree - Delivery Outcome Delivery Outcome: positive: Livebirth - : positive: Placed in direct skin contact with mother, Warmed, Novice used [place] sex: positive: Female - Cord Cord: positive: 3 vessels - Placenta Placenta: positive: Intact, Spontaneous - Post Delivery Events Post Delivery Events: positive: No post delivery events
--- NOTE | 2022-11-22 05:40 | DELIVERY NOTE ---
Delivery Note - Infant Delivery Method Infant Delivery Method: positive: Spontaneous vaginal delivery - Presentation Presentation: positive: Vertex, KENIA - left occiput anterior - Nuchal Cord Nuchal Cord: positive: None - Amniotic Fluid Description Amniotic Fluid Description: positive: Clear - Episiotomy Type Episiotomy Type: positive: None - Laceration Laceration: positive: 1st degree, Vaginal - Delivery Outcome Delivery Outcome: positive: Livebirth - : positive: Placed in direct skin contact with mother, Stimulated, Warmed, [place] used sex: positive: Female - Cord Cord: positive: 3 vessels - Placenta Placenta: positive: Intact, Spontaneous - Estimated Blood Loss Estimated Blood Loss (in cc): 150 - Post Delivery Events Post Delivery Events: positive: No post delivery events - Delivery Comments (Free Text/Narrative) Delivery Comments (Free Text/Narrative): I was called to the bedside for precipitous delivery of physician patient who rapidly progressed from 3cm to c/c/+3 with spontaneous urge to push on 11/22/2022 @ 0441. FHR pattern demonstrated Category I pattern. : Normal SVB of a viable female infant on 11/22/2022 @ 0445. No nuchal cord. The was placed on maternal abdomen, stimulated, dried, and placed skin to skin. Apgars were 8/9 at 1 and 5 min respectively. Pitocin administered via IV for hemostasis. The umbilical cord was allowed to stop pulsating at which time it was doubly clamped by CNM and cut by FOB. Cord blood was obtained. 3VC. Fundal massage and gentle cord traction applied for active management of the third stage. Placenta delivered spontaneously and intact at 0451. The perineum, vagina, and cervix were inspected and noted to have a minor 1st degree vaginal laceration with intact perineum which was hemostatic and left unrepaired. Skin to skin contact initiated. Family bonding well. call worker person physician presents at bedside to resume care for the patient. Both mother and baby were left in stable condition.
[2022-11-22] MEDS: ACETAMINOPHEN 500 MG TABLET PO SCH ×2 (07:52→17:49)
--- NOTE | 2022-11-22 08:20 | PROCEDURE REPORT ---
- HPI Diagnosis/Indication for NST: Gestational Hypertension Current EDU 12/06/22 Gestation 37 Weeks and 6 Days 3 Para 1 Vital Signs Temperature 98.2 F 11/21/22 14:32 Heart Rate 104 H 11/21/22 14:32 Respiratory Rate 18 11/21/22 14:32 Blood Pressure 145/97 H 11/21/22 14:32 O2 Saturation 99 11/21/22 14:32 Temperature 98.6 F 11/22/22 06:07 Heart Rate 73 11/22/22 06:27 Respiratory Rate 22 11/22/22 06:27 Blood Pressure 131/84 H 11/22/22 06:27 O2 Saturation 99 11/22/22 06:27 If not protocol: Oxygen Flow, liters/minute - NST Procedure NST Procedure Start Date 11/21/22 Start Time 12:00 Stop Time 12:22 Vibroacoustic Stimulation Used No EFM: 120s, moderate variability, positive 15x15 accelerations, no decelerations [place]: no contractions NST reactive/Cat 1 Performed and read 11/21/22 - Results and Plan Findings/Impression: 32yo at 37.6w sent from office for gestational hypertension - Meets criteria for preeclampsia, PCR 0.4 and admitted for IOL, see H&P
[2022-11-22] MEDS: DOCUSATE SODIUM 100 MG CAPSULE PO SCH ×2 (10:22→21:55)
[2022-11-22] MEDS: IBUPROFEN 800 MG TABLET PO SCH ×2 (10:22→17:02)
[2022-11-23] MEDS: IBUPROFEN 800 MG TABLET PO SCH ×2 (03:32→08:59)
[2022-11-23] MEDS: ACETAMINOPHEN 500 MG TABLET PO SCH (03:32)
[2022-11-23 07:32] LABS: HCT - HEMATOCRIT 32.3 % (37.0-47.0); HGB - HEMOGLOBIN 10.6 g/dL (12.0-16.0); MEAN CORPUSCULAR HEMOGLOBIN 30.7 pg (27.0-31.0); MEAN CORPUSCULAR HGB CONC 32.8 g/dL (32.0-36.0); MEAN CORPUSCULAR VOLUME 93.6 fL (81.0-99.0); MEAN PLATELET VOLUME 10.5 fL (7.9-10.8); RED BLOOD COUNT 3.45 10^6/uL (4.20-5.40); RED CELL DISTRIBUTION WIDTH 14.3 % (12.0-15.0)
[2022-11-23 07:36] LABS: ALBUMIN 2.8 g/dL (3.2-5.5); ALBUMIN/GLOBULIN RATIO 0.9 (1.0-2.2); BILIRUBIN,TOTAL 0.4 mg/dL (0.2-1.0); CALCIUM 8.5 mg/dL (8.5-10.3); CREATININE 0.7 mg/dL (0.4-1.0); TOTAL PROTEIN 5.8 g/dL (6.7-8.2)
[2022-11-23] MEDS: DOCUSATE SODIUM 100 MG CAPSULE PO SCH (08:59)
--- NOTE | 2022-11-23 10:05 | PROVIDER PROGRESS NOTE ---
Subjective - Prog Note Date Prog Note Date: 11/23/22 Prog Note Time: 10:03 - Subjective Subjective: Patient is PPD#1 s/p , complicated by pre-eclampsia. Patient is doing well this morning. Denies headache, changes in vision, right upper qudrant pain. Ambulating, tolerating PO, spontaneously voiding, passing flatus. lochia < menses. Patient has history of anxiety and would like script for sertraline to go home. Objective - Vital Signs/Intake & Output Reviewed Vital Signs: Yes Vital Signs: Vital Signs x48h Temp Pulse Resp BP 11/23/22 08:47 97.9 F 91 18 131/83 H 11/23/22 03:32 98.1 F 75 18 129/75 Intake & Output: Intake & Output 11/20/22 11/21/22 11/22/22 11/23/22 23:59 23:59 23:59 23:59 Intake Total 300 Output Total 2 Balance -2 300 - Objective General Appearance: positive: No acute distress Respiratory: positive: Breath sounds nml Cardiovascular: positive: Regular rate & rhythm Abdomen: positive: Non-tender (firm fundus below umbilicus) Extremities: positive: Pedal edema (1+) Neurologic/Psychiatric: positive: Oriented x3, Other (DTRS 1+) - Lab Results Fish Bones: 11/23/22 07:15 11/23/22 07:15 Other Labs: Lab Results x24hrs 11/23/22 11/23/22 Range/Units 07:15 07:15 WBC 8.0 (4.8-10.8) x10^3/uL RBC 3.45 L (4.20-5.40) 10^6/uL Hgb 10.6 L (12.0-16.0) g/dL Hct 32.3 L (37.0-47.0) % MCV 93.6 (81.0-99.0) fL MCH 30.7 (27.0-31.0) pg MCHC 32.8 (32.0-36.0) g/dL RDW 14.3 (12.0-15.0) % Plt Count 184 (130-450) 10^3/uL MPV 10.5 (7.9-10.8) fL Sodium 137 (135-145) mmol/L Potassium 4.0 (3.5-5.0) mmol/L Chloride 109 (101-111) mmol/L Carbon Dioxide 22 (21-32) mmol/L Anion Gap 6.0 (6-13) BUN 14 (6-20) mg/dL Creatinine 0.7 (0.4-1.0) mg/dL Estimated GFR (MDRD) 97 (>89) Glucose 82 (70-100) mg/dL Calcium 8.5 (8.5-10.3) mg/dL Total Bilirubin 0.4 (0.2-1.0) mg/dL AST 18 (10-42) IU/L ALT 13 (10-60) IU/L Alkaline Phosphatase 84 (42-121) IU/L Total Protein 5.8 L (6.7-8.2) g/dL Albumin 2.8 L (3.2-5.5) g/dL Globulin 3.0 (2.1-4.2) g/dL Albumin/Globulin Ratio 0.9 L (1.0-2.2) Assessment/Plan - Problem List (1) Preeclampsia Impression: nifedipine 30 mg XL daily I reviewed signs and symptoms of pre-eclampsia. Patient to have close follow up with Dr. Herring Patient has history of anxiety I reviewed signs and symptoms of depression. Patient feels mood is okay but would like script for sertraline.
--- NOTE | 2022-11-23 10:10 | Discharge Plan ---
Discharge Plan Problem Reviewed?: Yes Disposition: Home, Self Care Condition: Good Prescriptions: Docusate Sodium 100Mg Capsule [Colace 100Mg Capsule] 200 mg PO BID PRN 30 Days #60 cap PRN Reason: Constipation NIFEdipine [Procardia Xl] 30 mg PO DAILY #30 tab Diet: Regular No Smoking: If you smoke, Please STOP! Call for help. Follow-up with: Maite Marie ARNP [Primary Care Provider] -
--- NOTE | 2022-11-23 10:13 | DISCHARGE SUMMARY ---
"Discharge Summary Discharge Date: 11/23/22 Discharging Provider: Kenn Primary Care Provider: Nevaeh Condition at Discharge: Good Discharge Disposition: 01 Home, Self Care - DIAGNOSES Admission Diagnoses: Pre-eclampsia - HOSPITAL COURSE Hospital Course: Patient was admitted for induction of labor secondary to pre-eclampsia. She had an uncomplicated vaginal delivery and uncomplicated course. She was discharged to home on Procardia 30 mg XL daily and Sertraline. I reviewed signs and symptoms of pre-eclampsia and depression. Patient has close follow up with Dr. Herring. - ALLERGIES Allergies/Adverse Reactions: Allergies Allergy/AdvReac Type Severity Reaction Status Date / Time No Known Drug Allergies Allergy Verified 05/26/22 09:30 - MEDICATIONS Home Medications: Ambulatory Orders Medication Instructions Recorded Confirmed Docusate Sodium 100Mg Capsule 200 mg PO BID PRN 30 Days #60 cap 11/23/22 [Colace 100Mg Capsule] NIFEdipine [Procardia Xl] 30 mg PO DAILY #30 tab 11/23/22 Home Medications Other | Comments: Sertraline - PHYSICAL EXAM AT DISCHARGE General Appearance: positive: No acute distress Respiratory: positive: Breath sounds nml Cardiovascular: positive: Regular rate & rhythm Abdomen: positive: Non-tender (FFBU) Extremities: positive: Pedal edema Neurologic/Psychiatric: positive: Oriented x3 (DTRs 1+) - LABS Result Diagrams: 11/23/22 07:15 11/23/22 07:15"
[2022-11-23 10:41] VITALS: BP 121/84
--- NOTE | 2022-11-23 15:23 | Labor Flowsheet ---
Labor Flowsheet Datetime Report Generated by CPN: 11/23/2022 15:23 Datetime: 11/23/2022 10:40 VITAL SIGNS NBP Sys/Makayla/Mean (mmHg): 121 : 84 : 93 Pulse: 89 LaborFlag: Labor Datetime: 11/22/2022 06:25 SpO2 (%): 98 Datetime: 11/22/2022 03:52 UTERINE ACTIVITY Monitor Mode: External Frequency (min): 3 Quality: Strong Duration (sec): 40-90 Pattern: Normal: <= 5 Contractions in 10 Minutes Resting Tone (Palpate): Relaxed ASSESSMENT A Monitor Mode: External US FHR Baseline Rate : 125 Variability: Moderate 6-25 bpm Accelerations: 15X15 Decelerations: None Category: Category I Datetime: 11/22/2022 03:35 VAGINAL EXAM Dilatation (cm): 2.5 Effacement (%): 80 Station: -1 Exam by: Maria Dolores RN Membrane Status: Ruptured Membranes Ruptured Date/Time: 11/22/2022 03:27 Membranes Rupture Method: Spontaneous Amniotic Fluid Color: Clear Amniotic Fluid Amount: Small Amniotic Fluid Odor: Normal Vaginal Bleeding: Normal Show Nitrazine: Positive Datetime: 11/22/2022 00:32 Stage of : Labor Datetime: 11/21/2022 23:06 Respirations: 16 Temperature (C): 37.1 Temperature Route: Oral MATERNAL ASSESSMENT Level of Consciousness: Alert DTR's/Clonus: DTRs 1+; No Clonus Headache: Denies Nausea/Vomiting: Denies RUQ Epigastric Pain: Denies Datetime: 11/21/2022 21:01 PATIENT CARE Patient Position/Activity: Semi-Fowlers Datetime: 11/21/2022 20:31 FHR Baseline Changes: No Baseline Change Datetime: 11/21/2022 20:00 Breath Sounds, Left: Clear and Equal Breath Sounds, Right: Clear and Equal Datetime: 11/21/2022 19:30 ASSESSMENT B Monitor Mode: External US Datetime: 11/21/2022 18:00 PAIN Pain Scale: 3 Pain Presence: Intermittent Pain Type: Cramping Pain Location: Abdomen Pain Assessment Comments: Patient is comfortable Datetime: 11/21/2022 16:00 Contraction Comments: Irregular with irritablility. Patient denies feeling UC Datetime: 11/21/2022 15:55 MEDICATIONS Cervical Ripening Agents: Cytotec @ Datetime: 10/18/2022 09:35 COMMUNICATION Communication: Call/Page Placed to Provider Notification Reason: Status
[2022-11-24] MEDS ORDERED: NIFEdipine ER 30 MG TABLET PO SCH (09:00)
== END 2022-11-23 15:15 | disposition home or self-care (01) | DRG 807 ==
LOC: WFO 11:48 → FBP 11:50 → WFO 14:31 → FBP 14:32
PROVIDERS: ADMIT Obstetrics & Gynecology; ATTEND Obstetrics & Gynecology
PROC: 3E0DXGC Introduction of Other Therapeutic Substance into Mouth and Pharynx, External Approach (ICD-10-PCS; 2022-11-21)
PROC: 10E0XZZ Delivery of Products of Conception, External Approach (ICD-10-PCS; principal; 2022-11-22)
DX: O14.94 Unspecified pre-eclampsia, complicating childbirth (principal); Z37.0 Single live birth; Z3A.37 37 weeks gestation of pregnancy; O99.824 Streptococcus B carrier state complicating childbirth; O70.0 First degree perineal laceration during delivery; O99.344 Other mental disorders complicating childbirth; F41.9 Anxiety disorder, unspecified
CPT/HCPCS: 36415; 59025; 80053; 82570; 84156; 85025; 85027; 86850; 86900; 86901; 99215; A9270; J7120